=== PATIENT | male | born 1985 | race Asian ===

== ENCOUNTER 2017-11-10 14:58 | Emergency (ER) | payer OTHER ==
[2017-11-10 15:13] VITALS: TEMP 97.8; BMI 23.4
--- NOTE | 2017-11-10 15:14 | PDOC ---
Rapid Medical Evaluation Time Seen by Provider: 11/10/17 15:12 Medical Evaluation: Allergies Allergy/AdvReac Type Severity Reaction Status Date / Time No Known Allergies Allergy Verified 11/10/17 15:11 11/10/17 15:12 32 year old male occasional smoker with two days of intermittent right-sided headache with associated dizziness. Has never had headaches before. No nausea/ vomiting, no visual changes, no limb weakness. Alert and oriented, no distress. No focal neurologic deficits. Vital signs notable for BP 133/95. -Head CT -Basic labs -To Main ED for further evaluation
--- NOTE | 2017-11-10 15:37 | PDOC ---
History of Present Illness - General Chief Complaint: Lightheaded Stated Complaint: HEADACHE Time Seen by Provider: 11/10/17 15:12 History Source: Patient Exam Limitations: No Limitations - History of Present Illness Initial Comments: 11/10/17 16:207 32-year-old male with no past medical history presents the emergency room with complaints of generalized throbbing headache more so on the right side yesterday associated intermittent dizziness 2. Patient states symptoms returned again this morning and had 2 episodes of dizziness with headache but states symptoms have resolved after taking Advil. patient denies history of headache, head injury, visual changes, recent dental infection, chest pain, shortness of breath, nausea or neck stiffness. Patient states he eats regularly and has no recent change in weight. Timing/Duration: resolved prior to arrival Severity: moderate Associated Symptoms: reports: denies symptoms Past History - Past Medical History Allergies/Adverse Reactions: Allergies Allergy/AdvReac Type Severity Reaction Status Date / Time No Known Allergies Allergy Verified 11/10/17 15:11 Home Medications: Ambulatory Orders NK [No Known Home Medication] 11/10/17 COPD: No Other medical history: denies. - Suicide/Smoking/Psychosocial Hx Smoking History: Current some day smoker Have you smoked in the past 12 months: No Information on smoking cessation initiated: No Patient Lives Alone: No Lives with/in: spouse/SO Review of Systems - Review of Systems Able to Perform ROS?: Yes Constitutional: No: Symptoms Reported HEENTM: No: Double Vision Respiratory: No: Symptoms reported Cardiac (ROS): Yes: Lightheadedness ABD/GI: No: Symptoms Reported Musculoskeletal: No: Symptoms Reported Integumentary: No: Symptoms Reported Neurological: Yes: Headache, Dizziness Endocrine: No: Symptoms Reported Hematologic/Lymphatic: No: Symptoms Reported *Physical Exam - Vital Signs Last Vital Signs Temp Pulse Resp BP Pulse Ox 97.8 F 77 19 133/95 99 11/10/17 15:11 11/10/17 15:11 11/10/17 15:11 11/10/17 15:11 11/10/17 15:11 - Physical Exam General Appearance: Yes: Nourished, Appropriately Dressed. No: Apparent Distress HEENT: positive: EOMI, MALIK. negative: Pale Conjunctivae Neck: positive: Supple. negative: Decreased range of motion Cardiovascular: positive: Regular Rhythm, Regular Rate. negative: Murmur Integumentary: positive: Normal Color, Warm, Moist Neurologic: positive: Motor Strength 5/5 (ambulatory) ED Treatment Course - LABORATORY CBC & Chemistry Diagram: 11/10/17 15:33 11/10/17 15:33 Medical Decision Making - Medical Decision Making 11/10/17 16:07 Patient with no past medical history of headaches presents with headache intimately since yesterday associated with dizziness. Patient exam had known acute findings. Patient was seen by a provider in rapid medical evaluation for labs were drawn urine was ordered and CT of the head was requested. 11/10/17 16:37 Selected Entries 11/10/17 15:11 Temperature 97.8 F Pulse Rate 77 Respiratory 19 Rate Blood Pressure 133/95 O2 Sat by Pulse 99 Oximetry (%) Laboratory Tests 11/10/17 11/10/17 15:33 15:33 WBC 7.4 Hgb 15.4 Hct 44.9 Plt Count 219 PT with INR 12.80 H 11/10/17 16:[address] shows no evidence of acute intracranial pathology. Chemistry and urinalysis pending. 11/10/17 17:33 Laboratory Tests 11/10/17 11/10/17 15:33 16:20 Sodium 140 Potassium 4.4 Chloride 101 Carbon Dioxide 31 Anion Gap 8 BUN 12 Creatinine 0.7 Random Glucose 81 Calcium 9.6 Urine Nitrite Negative Pt remains asymptomatic *DC/Admit/Observation/Transfer Diagnosis at time of Disposition: Headache Qualifiers: Headache type: unspecified Headache chronicity pattern: acute headache Intractability: not intractable Qualified Code(s): R51 - Headache - Discharge Dispostion Disposition: HOME Condition at time of disposition: Good - Referrals Referrals: Reyes Guzman MD [Staff Physician] - - Patient Instructions Printed Discharge Instructions: DI for Headache Additional Instructions: Please take Motrin or Tylenol for discomfort. [place] eat well balanced meals throughout the day. If headaches continue or worsen please follow up with referred neurologist. - Post Discharge Activity
[2017-11-10 15:55] LABS: BASO % 0.3 % (0-2.0); EOS % 0.2 % (0-4.5); MCH 27.9 pg (25.7-33.7); MCHC 34.3 g/dl (32.0-35.9); MEAN CELL VOLUME 81.4 fl (80-96); MEAN PLT VOLUME 8.4 fl (7.5-11.1); NEUT % 54.1 % (42.8-82.8); PLATELET COUNT 219 K/MM3 (134-434); RDW 13.8 % (11.9-15.9); WHITE BLOOD COUNT 7.4 K/mm3 (4.0-10.0)
[2017-11-10 16:12] LABS: INR 1.13 (0.82-1.09); PROTHROMBIN TIME (PATIENT) 12.8 SEC (9.98-11.88)
[2017-11-10 16:17] LABS: ANION GAP 8 (8-16); CALCIUM 9.6 mg/dL (8.5-10.1); CO2 31 mmol/L (21-32); CREATININE 0.7 mg/dL (0.7-1.3); GLUCOSE,RANDOM 81 mg/dL (74-106)
[2017-11-10 16:30] LABS: URINE APPEARANCE CLEAR; URINE BILIRUBIN NEGATIVE (NEGATIVE); URINE BLOOD NEGATIVE (NEGATIVE); URINE COLOR LTYELLOW; URINE GLUCOSE (UA) NEGATIVE (NEGATIVE); URINE KETONE NEGATIVE (NEGATIVE); URINE LEUK ESTERASE NEGATIVE (NEGATIVE); URINE NITRITE NEGATIVE (NEGATIVE); URINE PROTEIN NEGATIVE (NEGATIVE); URINE UROBILINOGEN NEGATIVE mg/dL (0.2-1.0)
[2017-11-10 17:40] VITALS: BP 114/76; PULSE 90
[2017-11-10 20:26] LABS: URINE LEUK ESTERASE Negative (NEGATIVE)
== END 2017-11-10 17:44 | disposition home or self-care (01) ==
LOC: JER 14:58
DX: R51 Headache (principal); F17.210 Nicotine dependence, cigarettes, uncomplicated
CPT/HCPCS: 36415; 70450-TC; 80048; 81003; 85025; 85610; 99282-25

== ENCOUNTER 2023-06-29 13:46 | Emergency (ER) | payer OTHER ==
[2023-06-29 13:57] VITALS: BP 108/75; PULSE 71; RESP 19; TEMP 98.3; BMI 25.0
[2023-06-29] MEDS ORDERED: SODIUM CHLORIDE 0.9% 500 ML INFUS.BAG IV ONE (15:24)
[2023-06-29 15:40] LABS: BASO % 0.3 % (0-2.0); EOS % 0.7 % (0-4.5); HEMOGLOBIN 14.7 GM/dL (11.7-16.9); LYMPH % 36.9 % (8-40); MCH 27.3 pg (25.7-33.7); MCHC 34.3 g/dl (32.0-35.9); MEAN CELL VOLUME 79.5 fl (80-96); MEAN PLT VOLUME 7.8 fl (7.5-11.1); MONO % 10.2 % (3.8-10.2); NEUT % 51.9 % (42.8-82.8); PLATELET COUNT 192 10^3/uL (134-434); RDW 13.8 % (11.9-15.9); WHITE BLOOD COUNT 5.7 K/mm3 (4.0-10.0)
[2023-06-29 16:19] LABS: POTASSIUM 4.1 mmol/L (3.5-5.1)
[2023-06-29 16:24] LABS: ALBUMIN 3.7 g/dl (3.4-5.0); BLOOD UREA NITROGEN 9.1 mg/dL (7-18); CALCIUM 9.1 mg/dL (8.5-10.1)
[2023-06-29 16:27] LABS: CREATININE 0.7 mg/dL (0.55-1.3)
[2023-06-29 16:29] LABS: BILIRUBIN,TOTAL 0.5 mg/dL (0.2-1); TOT PROT 6.9 g/dl (6.4-8.2)
== END 2023-06-29 16:46 | disposition home or self-care (01) ==
LOC: JER 13:46
DX: R42 Dizziness and giddiness (principal); R11.0 Nausea; R53.1 Weakness; E86.0 Dehydration
CPT/HCPCS: 36415; 80053; 83690; 84443; 85025; 99284-25